=== PATIENT | male | born 1950 | race Caucasian/White ===

== ENCOUNTER 2018-08-05 15:58 | Emergency (ER) | payer OTHER, MEDICARE ==
[~2018-08-05] VITALS: Ht 182.9 cm; Wt 95.0 kg
[2018-08-05] MEDS ORDERED: MORPHINE SULFATE 4 MG/ML CPJ (NOT FOR IM USE) IV STA (18:42)
[2018-08-05] MEDS ORDERED: SODIUM CHLORIDE 0.9% 1,000 ML IV ONE (18:42)
[2018-08-05] MEDS ORDERED: ONDANSETRON HCL 4MG/2ML INJ IV STA (18:42)
[2018-08-05] MEDS ORDERED: KETOROLAC 30MG/ML VIAL IV ONE (18:45)
[2018-08-05] MEDS ORDERED: HYDRALAZINE 20MG/ML VIAL IV ONE (18:45)
[2018-08-05 19:00] LABS: BASOPHILS % 0.5 % (0.0-2.0); EOSINOPHILS % 2.4 % (0.0-5.0); HEMATOCRIT. 46.7 % (42.0-52.0); HEMOGLOBIN. 15.8 g/dL (14.0-18.0); LYMPHOCYTES % 12.4 % (20.0-50.0); MEAN CORPUSCULAR HEMOGLOBIN 30.2 pg (28.0-32.0); MEAN CORPUSCULAR VOLUME 89.1 fL (80.0-94.0); MEAN PLATELET VOLUME 7.2 fl (7.4-10.4); MONOCYTES % 7.9 % (2.0-8.0); NEUTROPHILS % 76.8 % (40.0-76.0); PLATELET 202 x1000/uL (130-400); RED BLOOD CELL COUNT 5.24 mill/uL (4.7-6.1)
[2018-08-05 19:04] LABS: CHLORIDE 103 mEq/L (98-107)
[2018-08-05 19:44] LABS: CLARITY URINE CLEAR (CLEAR); COLOR URINE YELLOW (YELLOW); KETONES URINE NEGATIVE (NEGATIVE); LEUKOCYTE ESTERASE URINE NEGATIVE (NEGATIVE); NITRITE URINE NEGATIVE (NEGATIVE); OCCULT BLOOD URINE 2+ (NEGATIVE); PH URINE 6.5 (4.5-8.0); PROTEIN URINE NEGATIVE (NEGATIVE); SPECIFIC GRAVITY URINE 1.016 (1.005-1.030)
[2018-08-05 22:01] VITALS: BP 159/82
== END 2018-08-05 22:07 | disposition home or self-care (01) ==
LOC: ER 15:58
DX: N23 Unspecified renal colic (principal); N20.0 Calculus of kidney; I10 Essential (primary) hypertension; F17.200 Nicotine dependence, unspecified, uncomplicated; Z98.890 Other specified postprocedural states
CPT/HCPCS: 36415; 76700; 80053; 81003; 85025; 96374; 96375; 99284; J0360; J1885; J2270; J2405; J7030